=== PATIENT | female | born 1985 ===

== ENCOUNTER 2017-01-03 09:08 | Emergency (ER) | payer OTHER ==
[2017-01-03 09:08] VITALS: BMI 11.6
[2017-01-03] MEDS ORDERED: Sodium Chloride 0.9% 1,000 ML IV STA (10:17)
--- NOTE | 2017-01-03 10:30 | ED PDOC ---
HPI: Abdomen Time Seen by Provider: 01/03/17 10:06 Chief Complaint (Nursing): GI Problem Chief Complaint (Provider): abdominal pain History Per: Patient History/Exam Limitations: no limitations Onset/Duration Of Symptoms: Intermittent Episodes, Other (x 1 month ) Additional Complaint(s): Saniya Vaca is a 31 year old female, with a previous medical history of migraines, who presents to the ED with complaints of abdominal pain associated with nausea, vomiting, diarrhea and headache intermittently ongoing for 1 month. Patient denies any fever or chills. She reports taking tylenol with relief. PMD: none provided Past Medical History Reviewed: Historical Data, Nursing Documentation, Vital Signs Vital Signs: Last Vital Signs Temp 98.4 F 01/03/17 15:16 Pulse 78 01/03/17 15:16 Resp 16 01/03/17 15:16 BP 128/78 01/03/17 15:16 Pulse Ox 99 01/03/17 15:16 - Medical History PMH: Asthma - Surgical History Surgical History: No Surg Hx - Family History Family History: States: Unknown Family Hx - Immunization History Hx Tetanus Toxoid Vaccination: No Hx Influenza Vaccination: No Hx Pneumococcal Vaccination: No - Home Medications Home Medications: Ambulatory Orders Medication Instructions Recorded Albuterol 04/03/14 Azithromycin 250 mg PO DAILY #6 tab 04/03/14 Prednisone 60 mg PO DAILY #15 tab 04/03/14 Albuterol Sulfate [Proair Hfa] 0.09 mg IH Q6H PRN #2 inh 01/06/16 Azithromycin [Zithromax Z-Thee] 250 mg PO DAILY 5 Days 01/06/16 Prednisone 20 mg PO BID 5 Days 01/06/16 Famotidine [Pepcid] 20 mg PO BID #20 tab 01/03/17 Ondansetron ODT [Zofran ODT] 4 mg PO Q8H PRN #20 odt 01/03/17 - Allergies Allergies/Adverse Reactions: Allergies Allergy/AdvReac Type Severity Reaction Status Date / Time No Known Allergies Allergy Verified 01/06/16 11:00 Review of Systems ROS Statement: Except As Marked, All Systems Reviewed And Found Negative Constitutional: Negative for: Fever, Chills Gastrointestinal: Positive for: Nausea, Vomiting, Abdominal Pain, Diarrhea Neurological: Positive for: Headache Physical Exam - Reviewed Nursing Documentation Reviewed: Yes Vital Signs Reviewed: Yes - Physical Exam Appears: Positive for: Well, Non-toxic, No Acute Distress (patient found to be drinking coffee on exam and tolerating PO well ) Head Exam: Positive for: ATRAUMATIC, NORMAL INSPECTION, NORMOCEPHALIC Skin: Positive for: Normal Color, Warm, Dry Eye Exam: Positive for: EOMI, Normal appearance, PERRL ENT: Positive for: Normal ENT Inspection Neck: Positive for: Normal, Painless ROM Cardiovascular/Chest: Positive for: Regular Rate, Rhythm Respiratory: Positive for: CNT, Normal Breath Sounds Gastrointestinal/Abdominal: Positive for: Bowel Sounds, Soft, Tenderness ( epigastric ) Back: Positive for: Normal Inspection Extremity: Positive for: Normal ROM Neurologic/Psych: Positive for: Alert, Oriented - Laboratory Results Result Diagrams: 01/03/17 10:15 01/03/17 10:15 - ECG O2 Sat by Pulse Oximetry: 98 (RA) Pulse Ox Interpretation: Normal Medical Decision Making Medical Decision Making: Initial Impression: Gastritis and Migraine Initial Plan: * labs * lipase * urine * urine dipstick * pepcid 20 mg IV * Troradol 15 mg IV * zofran 4 mg IV * IV NS 1,000 ml at 1,000 ml/hr * reevaluation 14:20 US abdomen FINDINGS: LIVER: Measures 13.2 cm in length. Normal echogenicity of the liver parenchyma. No mass. No intrahepatic bile duct dilatation. GALLBLADDER: Unremarkable. No gallstones. COMMON BILE DUCT: Measures 3.3 mm. No stones. No dilatation. PANCREAS: Obscured by overlying bowel gas. Non diagnostic assessment of the pancreas RIGHT KIDNEY: Measures 5.5 x 9.82 cm in length. Normal echogenicity. No calculus, mass, or hydronephrosis. AORTA: No aneurysmal dilatation. IVC: Unremarkable. OTHER FINDINGS: None . IMPRESSION: No significant or acute findings to account for/ related to the clinical presentation. Limitations of the current examination: Nonvisualization of the pancreas. Scribe Attestation: Documented by Gina Fisher, acting as a scribe for Gina Moser MD. Provider Scribe Attestation: All medical record entries made by the Scribe were at my direction and personally dictated by me. I have reviewed the chart and agree that the record accurately reflects my personal performance of the history, physical exam, medical decision making, and the department course for this patient. I have also personally directed, reviewed, and agree with the discharge instructions and disposition. Disposition - Clinical Impression Clinical Impression: Gastritis - Disposition Referrals: [facility] [Outside] Disposition: Routine/Home Disposition Time: 14:23 Condition: STABLE Prescriptions: Famotidine [Pepcid] 20 mg PO BID #20 tab Ondansetron ODT [Zofran ODT] 4 mg PO Q8H PRN #20 odt PRN Reason: Nausea/Vomiting Instructions: Gastritis (ED) Forms: [facility] (Danish) Print Language: THAI
[2017-01-03 11:15] LABS: BASO % 0.3 % (0.0-2.0); EOS # 0.1 K/uL (0.0-0.7); HEMATOCRIT 42.4 % (34.0-47.0); LYMPH # 3.1 K/uL (1.0-4.3); LYMPH % 43.6 % (20.0-40.0); MEAN CELL VOLUME 89.5 fl (81.0-99.0); MEAN CORPUSCULAR HEMOGLOBIN 29.8 pg (27.0-31.0); MEAN CORPUSCULAR HGB CONC 33.3 g/dL (33.0-37.0); MEAN PLATELET VOLUME 10.5 fl (7.2-11.7); MONO # 0.5 K/uL (0.0-0.8); MONO % 7.2 % (0.0-10.0); NEUT # 3.3 K/uL (1.8-7.0); NEUT % 46.9 % (50.0-75.0); RED CELL DISTRIBUTION WIDTH 13.7 % (11.5-14.5); WHITE BLOOD COUNT 7.1 K/uL (4.8-10.8)
[2017-01-03 11:33] LABS: ALB/GLOB RATIO 1.3 (1.0-2.1); ALKALINE PHOSPHATASE 52 U/L (38-126); ALT/SGPT 36 U/L (9-52); AST/SGOT 19 U/L (14-36); BILIRUBIN,TOTAL 0.4 mg/dl (0.2-1.3); BLOOD UREA NITROGEN 10 mg/dl (7-17); CARBON DIOXIDE 26 mmol/L (22-30); CHLORIDE 105 mmol/L (98-107); GFR AFRICAN-AMERICAN > 60; GLUCOSE,RANDOM 104 mg/dL (65-105); LIPASE 154 U/L (23-300); POTASSIUM 4.4 MMOL/L (3.6-5.0); SODIUM 140 mmol/l (132-148); TOTAL PROTEIN 7.5 G/DL (6.3-8.2)
--- NOTE | 2017-01-03 14:21 | US ---
HISTORY: Epigastric pain, vomiting COMPARISON: None. TECHNIQUE: Sonographic evaluation of the right upper quadrant of the abdomen. FINDINGS: LIVER: Measures 13.2 cm in length. Normal echogenicity of the liver parenchyma. No mass. No intrahepatic bile duct dilatation. GALLBLADDER: Unremarkable. No gallstones. COMMON BILE DUCT: Measures 3.3 mm. No stones. No dilatation. PANCREAS: Obscured by overlying bowel gas. Non diagnostic assessment of the pancreas RIGHT KIDNEY: Measures 5.5 x 9.82 cm in length. Normal echogenicity. No calculus, mass, or hydronephrosis. AORTA: No aneurysmal dilatation. IVC: Unremarkable. OTHER FINDINGS: None . IMPRESSION: No significant or acute findings to account for/ related to the clinical presentation. Limitations of the current examination: Nonvisualization of the pancreas.
[2017-01-03 15:21] VITALS: BP 128/78; PULSE 78; RESP 16; TEMP 98.4
[2017-01-04 11:12] VITALS: O2SAT 98
== END 2017-01-03 15:21 | disposition home or self-care (01) ==
LOC: H.ER 09:08
DX: K29.70 Gastritis, unspecified, without bleeding (principal); R51 Headache

== ENCOUNTER 2017-06-10 09:39 | Emergency (ER) | payer OTHER ==
[2017-06-10 09:54] VITALS: BP 122/71; PULSE 89; RESP 16; TEMP 98
[2017-06-10 09:55] VITALS: BMI 28.3
[2017-06-10 10:07] VITALS: O2SAT 98
[2017-06-10] MEDS ORDERED: Albuterol-Ipratrop 3 mg / 0.5 (3 ml) UD INH STA (11:06)
--- NOTE | 2017-06-10 11:07 | ED PDOC ---
HPI: SOB/CHF/COPD Time Seen by Provider: 06/10/17 10:10 Chief Complaint (Nursing): Shortness Of Breath Chief Complaint (Provider): SOB History Per: Patient Additional Complaint(s): 32 to female, PMH of Asthma, presents to ED with complaints of dry cough and sob x 3 weeks. No fever or chills. Pt using nebulizer without much relief. Pt worse at night. Past Medical History Reviewed: Nursing Documentation, Vital Signs Vital Signs: Last Vital Signs Temp 98.0 F 06/10/17 09:54 Pulse 89 06/10/17 09:54 Resp 16 06/10/17 09:54 BP 122/71 06/10/17 09:54 Pulse Ox 98 06/10/17 11:07 - Medical History PMH: Asthma - Surgical History Surgical History: No Surg Hx - Family History Family History: States: Unknown Family Hx - Living Arrangements Living Arrangements: With Family - Social History Current smoker - smoking cessation education provided: No Alcohol: Social Drugs: Denies - Immunization History Hx Tetanus Toxoid Vaccination: No Hx Influenza Vaccination: No Hx Pneumococcal Vaccination: No - Home Medications Home Medications: Ambulatory Orders Medication Instructions Recorded Albuterol 04/03/14 Azithromycin 250 mg PO DAILY #6 tab 04/03/14 Prednisone 60 mg PO DAILY #15 tab 04/03/14 Albuterol Sulfate [Proair Hfa] 0.09 mg IH Q6H PRN #2 inh 01/06/16 Azithromycin [Zithromax Z-Thee] 250 mg PO DAILY 5 Days tab 01/06/16 Prednisone 20 mg PO BID 5 Days tablet 01/06/16 Famotidine [Pepcid] 20 mg PO BID #20 tab 01/03/17 Ondansetron ODT [Zofran ODT] 4 mg PO Q8H PRN #20 odt 01/03/17 Methylprednisolone [Medrol Dose 4 mg PO DAILY #21 mg 06/10/17 Pack (21 tabs)] Promethazine HCl/Codeine 5 ml PO HS #80 ml 06/10/17 [Prometh-Codein 6.25-10 mg/5 ml] - Allergies Allergies/Adverse Reactions: Allergies Allergy/AdvReac Type Severity Reaction Status Date / Time No Known Allergies Allergy Verified 01/06/16 11:00 Curb-65 Severity Score - CURB-65 Severity Score Confusion: No Bun >19mg/dl (>7mmol/L): No Respiratory Rate greater than/equal to 30: No Systolic BP <90 or Diastolic BP less than/equal 60mmHg: No Age >64: No Curb-65 Score: 0 Percentage 30-day mortality: 0.6% Review of Systems ROS Statement: Except As Marked, All Systems Reviewed And Found Negative Physical Exam - Reviewed Nursing Documentation Reviewed: Yes Vital Signs Reviewed: Yes - Physical Exam Appears: Positive for: Well, Non-toxic, No Acute Distress Head Exam: Positive for: ATRAUMATIC, NORMAL INSPECTION, NORMOCEPHALIC Skin: Positive for: Normal Color, Warm, DRY Eye Exam: Positive for: EOMI, Normal appearance, PERRL ENT: Positive for: Normal ENT Inspection Neck: Positive for: Normal, Painless ROM Cardiovascular/Chest: Positive for: Regular Rate, Rhythm Respiratory: Positive for: CNT, Normal Breath Sounds Gastrointestinal/Abdominal: Positive for: Normal Exam, Bowel Sounds, Soft Back: Positive for: Normal Inspection Extremity: Positive for: Normal ROM Neurologic/Psych: Positive for: Alert, Oriented - ECG O2 Sat by Pulse Oximetry: 98 Medical Decision Making Medical Decision Making: CXR: NAD, as read by KENY Lockett neb treatments initiated POX: 98% on RA remains afebrile Disposition - Clinical Impression Clinical Impression: URI (upper respiratory infection) - Patient ED Disposition Is Patient to be Admitted: No - Disposition Disposition: Routine/Home Disposition Time: 13:32 Condition: STABLE Prescriptions: Methylprednisolone [Medrol Dose Pack (21 tabs)] 4 mg PO DAILY #21 mg Promethazine HCl/Codeine [Prometh-Codein 6.25-10 mg/5 ml] 5 ml PO HS #80 ml Instructions: Upper Respiratory Infection (ED) Forms: [facility] (Angolan) - POA Present On Arrival: None
[2017-06-10] MEDS ORDERED: Albuterol-Ipratrop 3 mg / 0.5 (3 ml) UD ONE (11:12)
--- NOTE | 2017-06-10 11:47 | RAD ---
HISTORY: cough and SOB COMPARISON: 01/06/2016 TECHNIQUE: Chest PA and lateral FINDINGS: LUNGS: No active pulmonary disease. PLEURA: No significant pleural effusion identified. No pneumothorax apparent. CARDIOVASCULAR: Normal. OSSEOUS STRUCTURES: No significant abnormalities. VISUALIZED UPPER ABDOMEN: Normal. OTHER FINDINGS: None. IMPRESSION: No active disease. No interval change.
== END 2017-06-10 13:54 | disposition home or self-care (01) ==
LOC: H.ER 09:39
DX: J06.9 Acute upper respiratory infection, unspecified (principal)